=== PATIENT | female | born 1995 | race Hispanic/Latino ===

== ENCOUNTER 2019-09-01 01:53 | Emergency (ER) | payer SELFPAY ==
[2019-09-01 02:03] VITALS: BP 119/72
[2019-09-01] MEDS ORDERED: LIDOCAINE-MPF (1%) 10 MG/1 ML VIAL 5 ML INFILTRATI ONE (02:35)
[2019-09-01] MEDS ORDERED: IBUPROFEN 400 MG TAB PO ONE (02:39)
--- NOTE | 2019-09-01 03:20 | Emergency Department Report ---
ED Laceration HPI - HPI Chief Complaint: Wound/Laceration Stated Complaint: LACERATION ON TWO FINGERS Occurred When: Today (2 hours ago) Severity: severe Tetanus Status: Not up to Date Laceration Symptoms: Yes Pain, No Foreign Body Sensation, No Numbness, No Weakness Other History: Patient is a 24-year-old white female who presents to the ED with left thumb and index finger laceration after she accidentally cut the fingers with a hatchet when cutting an object at home 2 hours ago. Patient states that the bleeding has been persistent but has since been controlled. Patient states that she is not up-to-date with her tetanus vaccinations. Patient denies numbness or tingling or weakness of left hand. ED Review of Systems ROS: Stated complaint: LACERATION ON TWO FINGERS Other details as noted in HPI Constitutional: denies: chills, fever Eyes: denies: eye pain, eye discharge, vision change ENT: denies: ear pain, throat pain Respiratory: denies: cough, shortness of breath, wheezing Cardiovascular: denies: chest pain, palpitations Endocrine: no symptoms reported Gastrointestinal: denies: abdominal pain, nausea, diarrhea Genitourinary: denies: urgency, dysuria, discharge Musculoskeletal: arthralgia (left thumb and index finger pain due to bleeding laceration), myalgia. denies: back pain, joint swelling Skin: other (Bleeding left index finger and thumb laceration). denies: rash, lesions Neurological: denies: headache, weakness, paresthesias Psychiatric: denies: anxiety, depression Hematological/Lymphatic: denies: easy bleeding, easy bruising ED Past Medical Hx - Past Medical History Previous Medical History?: Yes Hx Asthma: Yes Additional medical history: drug abuse, diluadid, heroin - Surgical History Past Surgical History?: No - Social History Smoking Status: Current Every Day Smoker Substance Use Type: None - Medications Home Medications: Home Medications Medication Instructions Recorded Confirmed Last Taken Type Butalb/Acetamin/Caff 50-325-40 1 tab PO Q8HR PRN #7 tablet 07/30/16 Unknown Rx [Fioricet] Ibuprofen [Motrin] 400 mg PO Q8H PRN #20 tablet 09/01/19 Unknown Rx cephALEXin [Keflex] 500 mg PO Q12HR #20 cap 09/01/19 Unknown Rx traMADoL [Ultram] 50 mg PO Q6HR PRN #10 tablet 09/01/19 Unknown Rx Laceration Physical Exam - Exam General: Vital signs noted. No distress. Alert and acting appropriately. Wound Length (cm): 2 Laceration Location: Upper Extremity (left index finger and thumb laceration with tenderness and bleeding) Full Body Front + Back: 1 - Bleeding, tender left index finger and thumb laceration Laceration Exam: Yes Normal Distal CMS, No Foreign Body, No Exposed Tendon, Vessel, or Nerve, No Tendon Injury ED Course Vital Signs 09/01/19 01:59 Temperature 99.0 F Pulse Rate 118 H Respiratory 12 Rate Blood Pressure 119/72 O2 Sat by Pulse 100 Oximetry ED Medical Decision Making - Medical Decision Making This is a 24-year-old white female who presented to the ED with left index fing er and thumb lacerations for 2 hours. In the ED, patient is alert and oriented 3 and is not in distress but extremely anxious. The lacerations were and dressed and cleaned while while in the process of initiating the last Piter procedure the patient stated that she does not want any laceration repair is performed, that she would rather not have those repaired. The procedure was stopped and the wounds dressed appropriately. Patient also declined ibuprofen 400 mg tablet was given to her for her pain in the ED, stating that "ibuprofen does not work for me because I take strong narcotic medications". Patient states that she takes Lortabs for her chronic dental abscesses although she ran out of this same a few days ago. Patient was discharged home on pain medications ibuprofen as needed for pain despite her protests to the contrary. Patient was advised that she is free to fill the prescription but she was advised that she does not need narcotic pain medications for these injury. I also offered a prescription of oral antibiotics but the patient refused stating that she has antiseptic solutions at home for the wound and that she does not take any oral antibiotics. Patient was therefore discharged home from the ED. Patient was advised to return to the ED immediately if symptoms get worse. Patient was also advised to follow-up with her primary care physician in 5-7 days for reevaluation - Differential Diagnosis finger lacerations; finger sprain; hand ocntusion Critical care attestation.: If time is entered above; I have spent that time in minutes in the direct care of this critically ill patient, excluding procedure time. ED Disposition Clinical Impression: Laceration of left thumb with foreign body and damage to nail Qualifiers: Encounter type: initial encounter Qualified Code(s): S61.122A - Laceration with foreign body of left thumb with damage to nail, initial encounter Laceration of left thumb without damage to nail Qualifiers: Encounter type: initial encounter Foreign body presence: without foreign body Qualified Code(s): S61.012A - Laceration without foreign body of left thumb without damage to nail, initial encounter Disposition: TO HOME OR SELFCARE Is pt being admited?: No Does the pt Need Aspirin: No Instructions: Finger Laceration (ED), Suture Care (ED) Additional Instructions: Take medication with food, take your regular pain medications at home as needed with food, drink plenty of fluids and follow-up with your primary care physician in 5-7 days for reevaluation. Return to the ED immediately if symptoms get worse. Prescriptions: cephALEXin [Keflex] 500 mg PO Q12HR #20 cap Ibuprofen [Motrin] 400 mg PO Q8H PRN #20 tablet PRN Reason: Pain , Severe (7-10) traMADoL [Ultram] 50 mg PO Q6HR PRN #10 tablet PRN Reason: Pain Referrals: [facility] [Outside] - 3-5 Days Time of Disposition: 03:28 Print Language: DANISH
== END 2019-09-01 03:15 | disposition home or self-care (01) ==
LOC: ED 01:53
DX: S61.211A Laceration without foreign body of left index finger without damage to nail, initial encounter (principal); S61.122A Laceration with foreign body of left thumb with damage to nail, initial encounter; J45.909 Unspecified asthma, uncomplicated; F17.200 Nicotine dependence, unspecified, uncomplicated; Z79.899 Other long term (current) drug therapy; W26.8XXA Contact with other sharp object(s), not elsewhere classified, initial encounter; Y93.89 Activity, other specified; Y92.009 Unspecified place in unspecified non-institutional (private) residence as the place of occurrence of the external cause; Y99.8 Other external cause status